=== PATIENT | male | born 1955 | race Caucasian/White ===

== ENCOUNTER → 2020-07-12 | Outpatient (CLI) | payer MEDICARE, OTHER | LOC: M.MRI 08:30 | PROVIDERS: ATTEND Orthopaedic Surgery | DX: S83.32XA Tear of articular cartilage of left knee, current, initial encounter (principal); M17.12 Unilateral primary osteoarthritis, left knee; M25.462 Effusion, left knee; X58.XXXA Exposure to other specified factors, initial encounter; Y92.89 Other specified places as the place of occurrence of the external cause; Y93.89 Activity, other specified; Y99.8 Other external cause status ==

== ENCOUNTER → 2020-07-26 | Outpatient (CLI) | payer MEDICARE, OTHER ==
[~2020-07-26] MED LIST: BROVANA15 MCG/2 M INH; KLONOPIN1 MG PO; LAMOTRIGINE250 MG PO; METFORMIN HCL500 M3 PO; MIRAPEX0.5 MG PO; NEURONTIN 300M300 M2 PO; PRAVACHOL40 MG PO; PROAIR HFA8.5 GM INH; SINGULAIR 10 MG10 MG PO; SYMBICORT160 MCG/4. INH; TRAMADOL 50 MG50 MG PO
[2020-07-26 10:33] LABS: ABSOLUTE EOSINOPHILS 0.4 thou/uL (0.0-0.7); ABSOLUTE MONOCYTES 0.8 thou/uL (0.0-1.2); ABSOLUTE NEUTROPHILS 3.7 thou/uL (1.6-8.1); BASOPHILS 0.5 %; EOSINOPHILS 4.5 %; HEMATOCRIT 38.1 % (42.0-52.0); HEMOGLOBIN 12.9 gm/dL (14.0-18.0); LYMPHOCYTES 37.9 %; MCH 29.4 pg (26.0-34.0); MCHC 33.7 g/dL (28.0-37.0); MCV 87.2 fL (80.0-100.0); MONOCYTES 9.7 %; MPV 7.2 fl. (7.2-11.1); NUCLEATED RBCS 0 /100WBC; PLATELET COUNT* 231 thou/uL (150-400); POLYS 47.4 %; RBC 4.37 mil/uL (4.50-6.00); RDW-CV 14.4 % (10.5-14.5); WBC 7.8 thou/uL (4.0-11.0)
[2020-07-26 10:37] LABS: URINE BILIRUBIN NEGATIVE (Negative); URINE BLOOD NEGATIVE (Negative); URINE CLARITY CLEAR; URINE COLOR YELLOW; URINE GLUCOSE-RANDOM NEGATIVE (Negative); URINE KETONES NEGATIVE (Negative); URINE LEUKOCYTES-REFLEX TRACE (Negative); URINE NITRITE-REFLEX NEGATIVE (Negative); URINE PROTEIN NEGATIVE (Negative); URINE UROBILINOGEN 0.2 E.U./dl (0.2-1.0)
[2020-07-26 10:43] LABS: INR 0.9; PROTIME 9.9 Seconds (9.20-11.50)
[2020-07-26 10:47] LABS: BACTERIA-REFLEX 1-9 Few /HPF (None Seen); CASTS None Seen /LPF (None Seen); MUCUS 0-3 Light strn/LPF (None Seen); SQUAMOUS 0-3 Few /LPF (0-3); URINE RBC 0-2 Rare /HPF (0-2); URINE WBC-REFLEX 0-5 Rare /HPF (0-5)
[2020-07-26 10:48] LABS: CRYSTALS None Seen /LPF (None Seen)
[2020-07-26 10:52] LABS: ALBUMIN 3.9 g/dL (3.4-5.0); CALCIUM 9.1 mg/dL (8.5-10.1); CREATININE 0.9 mg/dL (0.6-1.3); POTASSIUM 4.5 mmol/L (3.5-5.1); TOTAL BILIRUBIN 0.4 mg/dL (<0.1-1.0); TOTAL PROTEIN 7.2 g/dL (6.4-8.2)
--- NOTE | 2020-07-26 11:29 | EKG ---
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
== END ==
LOC: M.LAB 10:12
PROVIDERS: ATTEND Orthopaedic Surgery
DX: Z01.818 Encounter for other preprocedural examination (principal); Z96.652 Presence of left artificial knee joint

== ENCOUNTER 2020-08-02 06:32 | Inpatient (IN) | payer MEDICARE, OTHER ==
[~2020-08-02] VITALS: Ht 172.7 cm; Wt 81.6 kg
[2020-08-02 07:45] VITALS: BP 122/72
[2020-08-02 13:15] VITALS: BP 106/41
[2020-08-02 15:56] VITALS: BP 100/64
[2020-08-02 20:59] VITALS: BP 103/56
[2020-08-03] VITALS (7 sets, daily range): BP systolic 87–135; BP diastolic 52–67
[2020-08-03 04:07] LABS: HEMATOCRIT 30.4 % (42.0-52.0); HEMOGLOBIN 10.4 gm/dL (14.0-18.0)
[2020-08-04 07:53] LABS: HEMATOCRIT 28.8 % (42.0-52.0); MCH 30.4 pg (26.0-34.0); MCHC 34.6 g/dL (28.0-37.0); MCV 87.7 fL (80.0-100.0); MPV 7.9 fl. (7.2-11.1); RBC 3.28 mil/uL (4.50-6.00); RDW-CV 15.2 % (10.5-14.5); WBC 8.9 thou/uL (4.0-11.0)
[2020-08-04 08:32] VITALS: BP 96/50
[2020-08-04 08:52] LABS: BUN 15 mg/dL (7-18); CHLORIDE 103 mmol/L (98-107); CO2 31 mmol/L (21-32); GLUCOSE 125 mg/dL (70-99); POTASSIUM 4.4 mmol/L (3.5-5.1); SODIUM 137 mmol/L (136-145)
[2020-08-04 08:53] LABS: ALKALINE PHOSPHATASE 52 U/L (46-116); CALCIUM 7.9 mg/dL (8.5-10.1); MAGNESIUM 1.7 mg/dL (1.8-2.4); SGOT 19 U/L (15-37); SGPT 19 U/L (30-65); TOTAL BILIRUBIN 0.5 mg/dL (<0.1-1.0)
[2020-08-04 08:55] LABS: ALBUMIN 2.7 g/dL (3.4-5.0)
[2020-08-04 12:00] VITALS: BP 107/50
--- NOTE | 2020-08-04 14:39 | EKG ---
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1955 Requested By: Milton Martinez Order Number: [id number] Kam MD: Ruben Garcia Measurements Intervals [place] Rate: 150 P: SC: QRS: -48 QRSD: 108 T: 63 QT: 278 QTc: 440 Interpretive Statements Atrial flutter with a tachycardic ventricular response Left axis deviation Borderline low voltage, extremity leads Compared to ECG 07/26/2020 10:40:08 Left-axis deviation now present Sinus rhythm no longer present Electronically Signed On 08-04-2020 14:38:56 CDT by Ruben Garcia [email or web address] <ELECTRONICALLY SIGNED> By: Ruben Garcia MD, [facility] 08/04/20 1438 Ruben Garcia MD, FAC /EPI
--- NOTE | 2020-08-04 15:46 | 2DMMODE ---
[place] [address] 2 D/M-MODE ECHOCARDIOGRAM Name: JUDAH ARRIETA Room: [address] IN [facility]#: [id number] Admission: 08/02/20 Attend Phys: Milton Martinez Discharge: Date of : 55 Date of Service: 08/04/20 1546 Report #: [id number] THIS REPORT FOR: cc: Qasim Mobley Adam L.MD Holkins, John M. MD [facility] ~ APPROVED REPORT Study performed: 08/04/2020 14:19:53 EXAM: Comprehensive 2D, Doppler, and color-flow Echocardiogram Patient Location: In-Patient Room #: [facility] Status: routine BSA: 1.95 HR: 146 bpm BP: 107/50 mmHg Rhythm: Atrial Fibrillation Other Information Study Quality: Adequate Indications Atrial Fibrillation 2D Dimensions IVSd: 11.18 (7-11mm) LVOT Diam: 19.54 (18-24mm) LVDd: 44.72 mm PWd: 9.79 (7-11mm) Ascending Ao: 32.15 (22-36mm) LVDs: 30.38 (25-40mm) Aortic Root: 33.33 mm Volumes Left Atrial Volume (Systole) LA ESV Index: 13.50 mL/m2 Aortic Valve AoV Peak Price.: 1.49 m/s AO Peak Gr.: 8.89 mmHg LVOT Max P.59 mmHg AO Mean Gr.: 5.30 mmHg LVOT Mean P.71 mmHg LVOT Max V: 1.07 m/s AO V2 VTI: 20.81 cm LVOT Mean V: 0.96 m/s CINTIA (VTI): 2.40 cm2 LVOT V1 VTI: 16.68 [place] [address] 2 D/M-MODE ECHOCARDIOGRAM Name: JUDAH ARRIETA Room: [address] IN .R.#: [id number] Admission: 08/02/20 Attend Phys: Milton Martinez Discharge: Date of : 55 Date of Service: 08/04/20 1546 Report #: [id number] Pulmonary Valve PV Peak Price.: 1.11 m/s PV Peak Gr.: 4.95 mmHg Tricuspid Valve RAP Estimate: 5.00 mmHg TR Peak Gr.: 27.11 mmHg RVSP: 32.00 mmHg PA Pressure: 32.00 mmHg Left Ventricle The left ventricle is normal size. There is normal LV segmental wall motion. There is normal left ventricular wall thickness. Left ventricular systolic function is normal. The left ventricular ejection fraction is within the normal range. LVEF is 65-70%. This study is not technically sufficient to allow evaluation of the LV diastolic function due to atrial fibrillation. Right Ventricle The right ventricle is normal size. The right ventricular systolic function is normal. Atria The left atrium size is normal. The right atrium size is normal. Aortic Valve Mild aortic valve sclerosis. No aortic regurgitation is present. There is no aortic valvular stenosis. Mitral Valve The mitral valve is normal in structure. There is no mitral valve regurgitation noted. No evidence of mitral valve stenosis. Tricuspid Valve The tricuspid valve is normal in structure. Mild tricuspid regurgitation. Mild pulmonary hypertension. Pulmonic Valve The pulmonary valve is normal in structure. There is no pulmonic valvular regurgitation. Great Vessels The aortic root is normal in size. IVC is normal in size and collapses >50% with inspiration. Pericardium There is no pericard[place] [address] 2 D/M-MODE ECHOCARDIOGRAM Name: JUDAH ARRIETA Room: [address] IN .R.#: [id number] Admission: 08/02/20 Attend Phys: Milton Martinez Discharge: Date of : 55 Date of Service: 08/04/20 1546 Report #: [id number] <Conclusion> The left ventricle is normal size. There is normal left ventricular wall thickness. Left ventricular systolic function is normal. The left ventricular ejection fraction is within the normal range. LVEF is 65-70%. The right ventricle is normal size. The left atrium size is normal. Mild aortic valve sclerosis. No aortic regurgitation is present. There is no aortic valvular stenosis. The mitral valve is normal in structure. The tricuspid valve is normal in structure. Mild tricuspid regurgitation. Mild pulmonary hypertension. IVC is normal in size and collapses >50% with inspiration. There is no pericardial effusion. There is normal LV segmental wall motion. <ELECTRONICALLY SIGNED> By: Ruben Garcia MD, FACC 08/04/20 1546 1546 1546 Ruben Garcia MD, FACC /INF
[2020-08-04 16:11] VITALS: BP 82/52
--- NOTE | 2020-08-04 16:47 | EKG ---
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: CHELSEY : 1955 Requested By: Rufina Garza Order Number: [id number] Kam MD: Enrique Borges Measurements Intervals [place] Rate: 148 P: [place]: QRS: -63 QRSD: 117 T: -56 QT: 331 QTc: 520 Interpretive Statements Atrial flutter with 2:1 AV block Nonspecific IVCD with LAD Borderline low voltage, extremity leads Nonspecific T abnormalities, inferior leads Compared to ECG 08/04/2020 03:14:34 2:1 AV block now present Intraventricular conduction delay now present T-wave abnormality now present Left-axis deviation no longer present Electronically Signed On 08-04-2020 16:46:54 CDT by Enrique Borges [email or web address] <ELECTRONICALLY SIGNED> By: Enrique Borges MD, [facility] 08/04/20 1646 1127 1127 Enrique Borges MD, [facility] /EPI
[2020-08-05] VITALS (7 sets, daily range): BP systolic 90–148; BP diastolic 31–74
[2020-08-05 06:10] LABS: BE 2.4 mmol/L (-2 to +3); PCO2 38.3 mmHg (35.0-45.0); pH 7.456 (7.340-7.450)
[2020-08-05 06:16] LABS: PO2 59.9 mmHg (75.0-100.0)
[2020-08-05 09:20] LABS: CALCIUM 7.6 mg/dL (8.5-10.1); CREATININE 1.1 mg/dL (0.6-1.3); MAGNESIUM 2.1 mg/dL (1.8-2.4); POTASSIUM 5.1 mmol/L (3.5-5.1)
--- NOTE | 2020-08-05 09:34 | OP ---
[facility] [address] [place] [address] OPERATIVE REPORT Name: JUDAH ARRIETA Room: [facility]- ADM IN M.R.#: [id number] Admission: 08/02/20 Attend Phys: Jazmin Beard Discharge: Date of : 55 Report #: [id number] THIS REPORT FOR: cc: Qasim Mobley Adam L.MD Greiner, Robert F. II DO ~ DOC #: [id number] Romel Billingsley II, DO DATE OF SURGERY: 08/02/2020 PREOPERATIVE DIAGNOSIS: Left knee osteoarthritis. POSTOPERATIVE DIAGNOSIS: Left knee osteoarthritis. PROCEDURE: Left total knee arthroplasty. SURGEON: Romel Billingsley II, DO. AGED OR DISABLED CARE WORKER: None. ANESTHESIA: General endotracheal. ESTIMATED BLOOD LOSS: 50 mL. ANTIBIOTICS: Ancef preoperatively. DRAINS: Medium Hemovac. COMPLICATIONS: None. CONDITION: The patient stable to recovery room. IMPLANTS: Listed in operative record and progress note. BRIEF HISTORY: The patient was seen in the preoperative area. Preoperative H and P was performed. Site was marked, questions were answered. Risks and benefits were discussed with the patient in detail about the surgery. The patient wished to proceed, assuming all risks. DESCRIPTION OF PROCEDURE: The patient was taken to the operative suite, placed supine on the operating table and given appropriate anesthesia. A well-padded tourniquet was applied to the upper thigh, which was inflated to 300 mmHg after gravity exsanguination. The operative knee was sterilely prepped and draped. Surgery began by midline incision. This was carried down to subcutaneous tissues. A medial parapatellar arthrotomy was performed, carried down to bone. Patella was then everted and excess soft tissue [place] [address] OPERATIVE REPORT Name: JUDAH ARRIETA Room: [address] IN [place].#: [id number] Admission: 08/02/20 Attend Phys: Jazmin Beard Discharge: Date of : 55 Report #: [id number] cutting block was then applied and checked with drop rebeca rotational alignment, pinned in appropriate position and appropriate cuts were made. A 4-in-1 cutting block was then applied and checked for rotational alignment, pinned in appropriate position and appropriate cuts were made. The tibia was then exposed. Excess meniscus was removed. Retractors were placed on collateral ligaments. The tibial cutting block was applied, pinned in appropriate position, checked with a drop rebeca for rotational alignment and slope and appropriate cut was made. The tibial bone was removed. Tibial baseplate was then applied and checked for rotational alignment with a drop rebeca and pinned in appropriate position. The femur was then applied and box cut was reamed. This was then trialed with appropriate spacer, which showed excellent fit and fill and excellent stability of the knee through all range of motion. The patella was reamed in appropriate fashion, sized to appropriate size, 3 peg holes were drilled and it was then trialed and showed excellent flexion and extension, excellent tracking of the patella within the groove. These trials were then removed. The tibia was punched in appropriate fashion. Bone ends were cleansed with Pulsavac irrigation and cement was mixed and applied to final implants. These were then malleted into position and held the knee in extension and compressed to allow cement to cure. After cured, excess was removed using a Malin and osteotome. Wound was then copiously irrigated and the final spacer was then malleted in position. The tourniquet was deflated. Hemostasis was maintained with electrocautery. The pain cocktail was injected. Medium Hemovac drain was applied. Capsule was closed with 2 FiberWire and 1 Vicryl in [id number] fashion. Skin was closed with 2-0 Vicryl and 3-0 Monocryl. Dermabond and sterile dressing was applied. Jose wrap and PolarCare applied. The patient transported to recovery room in stable condition. Counts were correct throughout the procedure. DO CAT Toussaint II/THANH <ELECTRONICALLY SIGNED> By: Romel Billingsley II, DO 08/05/20 0934 0737 0818Romel Billingsley II, DO /nt
[2020-08-05 13:54] LABS: CHOLESTEROL 146 mg/dL (<200); HDL CHOLESTEROL 53 mg/dL (>40); LDL CHOLESTEROL 75 mg/dL (<100); TC:HDL 2.8 Ratio (Not establshd); TRIGLYCERIDE 92 mg/dL (<150); VLDL 18 mg/dL (<40)
[2020-08-05 13:55] LABS: SERUM ASSESSMENT Clear
[2020-08-06] VITALS: BP 109/49
[2020-08-06 04:18] VITALS: BP 110/64
[2020-08-06 06:20] LABS: HEMATOCRIT 24.6 % (42.0-52.0); HEMOGLOBIN 8.4 gm/dL (14.0-18.0); MCH 29.9 pg (26.0-34.0); MCHC 34.3 g/dL (28.0-37.0); MCV 87.2 fL (80.0-100.0); MPV 7.7 fl. (7.2-11.1); RBC 2.82 mil/uL (4.50-6.00); RDW-CV 14.5 % (10.5-14.5); WBC 5.3 thou/uL (4.0-11.0)
[2020-08-06 06:54] LABS: ALBUMIN 2.5 g/dL (3.4-5.0); CALCIUM 8.2 mg/dL (8.5-10.1); CREATININE 0.8 mg/dL (0.6-1.3); MAGNESIUM 2.4 mg/dL (1.8-2.4); POTASSIUM 4.3 mmol/L (3.5-5.1); TOTAL BILIRUBIN 0.5 mg/dL (<0.1-1.0); TOTAL PROTEIN 6.7 g/dL (6.4-8.2)
[2020-08-06 12:02] VITALS: BP 104/66
[2020-08-06 12:07] LABS: ABSOLUTE MONOCYTES 0.5 thou/uL (0.0-1.2); ABSOLUTE NEUTROPHILS 4.6 thou/uL (1.6-8.1); BASOPHILS 0.1 %; HEMATOCRIT 24.2 % (42.0-52.0); HEMOGLOBIN 8.4 gm/dL (14.0-18.0); LYMPHOCYTES 16.6 %; MCH 30.1 pg (26.0-34.0); MCHC 34.6 g/dL (28.0-37.0); MCV 87.1 fL (80.0-100.0); MONOCYTES 7.8 %; MPV 7.7 fl. (7.2-11.1); NUCLEATED RBCS 0 /100WBC; PLATELET COUNT* 171 thou/uL (150-400); POLYS 75.5 %; RBC 2.78 mil/uL (4.50-6.00); RDW-CV 14.2 % (10.5-14.5); WBC 6.1 thou/uL (4.0-11.0)
[2020-08-06 16:48] VITALS: BP 139/80
[2020-08-06 20:00] VITALS: BP 104/64
[2020-08-07 00:50] VITALS: BP 115/56
[2020-08-07 02:09] LABS: T7 2.1 (1.2-4.9)
[2020-08-07 04:12] VITALS: BP 123/69
[2020-08-07 06:37] LABS: HEMATOCRIT 26.4 % (42.0-52.0); HEMOGLOBIN 8.9 gm/dL (14.0-18.0); MCH 29.5 pg (26.0-34.0); MCHC 33.8 g/dL (28.0-37.0); MCV 87.3 fL (80.0-100.0); MPV 7.8 fl. (7.2-11.1); RBC 3.03 mil/uL (4.50-6.00); RDW-CV 14.7 % (10.5-14.5); WBC 6.9 thou/uL (4.0-11.0)
[2020-08-07 06:55] LABS: CALCIUM 8.5 mg/dL (8.5-10.1); CREATININE 0.8 mg/dL (0.6-1.3); POTASSIUM 4.3 mmol/L (3.5-5.1)
[2020-08-07 08:00] VITALS: BP 108/62
[2020-08-07 13:08] VITALS: BP 104/67
[2020-08-07 15:40] VITALS: BP 112/75
[2020-08-07 20:00] VITALS: BP 129/70
[2020-08-08] VITALS (7 sets, daily range): BP systolic 96–141; BP diastolic 57–73
[2020-08-08 04:22] LABS: ABSOLUTE LYMPHOCYTES 1.9 thou/uL (0.8-5.3); ABSOLUTE MONOCYTES 1.2 thou/uL (0.0-1.2); ABSOLUTE NEUTROPHILS 3.7 thou/uL (1.6-8.1); BASOPHILS 0.1 %; EOSINOPHILS 0.1 %; HEMATOCRIT 25.8 % (42.0-52.0); HEMOGLOBIN 8.9 gm/dL (14.0-18.0); LYMPHOCYTES 27.9 %; MCH 30.1 pg (26.0-34.0); MCHC 34.6 g/dL (28.0-37.0); MCV 86.8 fL (80.0-100.0); MONOCYTES 17.3 %; MPV 7.5 fl. (7.2-11.1); NUCLEATED RBCS 0 /100WBC; PLATELET COUNT* 266 thou/uL (150-400); POLYS 54.6 %; RBC 2.97 mil/uL (4.50-6.00); RDW-CV 14.3 % (10.5-14.5); WBC 6.8 thou/uL (4.0-11.0)
[2020-08-08 04:42] LABS: ALBUMIN 2.5 g/dL (3.4-5.0); CALCIUM 8.6 mg/dL (8.5-10.1); CREATININE 0.9 mg/dL (0.6-1.3); MAGNESIUM 2.2 mg/dL (1.8-2.4); POTASSIUM 4.8 mmol/L (3.5-5.1); TOTAL BILIRUBIN 0.5 mg/dL (<0.1-1.0); TOTAL PROTEIN 6.3 g/dL (6.4-8.2)
--- NOTE | 2020-08-08 10:18 | EKG ---
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 : 1955 Requested By: Rufina Garza Order Number: [id number] Kam MD: James Amor Measurements Intervals [place] Rate: 86 P: 78 SD: 148 QRS: 48 QRSD: 108 T: 54 QT: 368 QTc: 440 Interpretive Statements Sinus rhythm Nonspecific T abnormalities, anterior leads Baseline wander in lead(s) V2,V4,V6 Compared to ECG 08/04/2020 11:27:52 Atrial flutter no longer present T-wave abnormality still present Electronically Signed On 08-08-2020 10:18:28 CDT by James Amor [email or web address] <ELECTRONICALLY SIGNED> By: James Amor MD, FAC 08/08/20 1018 9 9 James Amor MD, [facility] /EPI
--- NOTE | 2020-08-08 10:26 | EKG ---
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 : 1955 Requested By: Rufina Garza Order Number: [id number] Reading MD: James Amor Measurements Intervals [place] Rate: 74 P: 78 NV: 135 QRS: 31 QRSD: 102 T: 39 QT: 389 QTc: 432 Interpretive Statements Sinus rhythm Borderline repolarization abnormality Baseline wander in lead(s) III,aVF Compared to ECG 08/04/2020 11:27:52 no change Electronically Signed On 08-08-2020 10:26:21 CDT by James Amor [email or web address] <ELECTRONICALLY SIGNED> By: James Amor MD, [facility] 08/08/20 1026 1155 1155 James Amor MD, [facility] /EPI
--- NOTE | 2020-08-08 10:32 | EKG ---
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
--- NOTE | 2020-08-08 20:33 | CON ---
[address] [address] CONSULTATION Name: JUDAH ARRIETA Room: [address] IN M.R.#: [id number] Admission: 08/02/20 Attend Phys: Jazmin Beard Discharge: Date of : 55 Report #: [id number] THIS REPORT FOR: cc: Qasim Mobley Adam L.MD Pervez, Adeel MD ~ DOC #: [id number] Joo Kellogg MD DATE OF CONSULTATION: 08/05/2020 REQUESTING PHYSICIAN: Milton Talbert MD INDICATION FOR CONSULTATION: Increasing hypoxia. HISTORY OF PRESENT ILLNESS: This is a 65-year-old gentleman with past medical history of COPD. The patient does not state that he is on oxygen or CPAP at home. At this time, the patient was admitted initially on 08/02/2020. Presentation was for elective left knee replacement. Despite the fact that the patient did not tell me that he uses oxygen at home, he in fact is noted to be on 4 liters of oxygen upon his first pulse ox available on 08/02. He did undergo knee replacement. Subsequent to the procedure, h has had increasing shortness of breath. He has also had a cough with small amounts of white and yellow sputum production. Also, he has had atrial flutter. He had a CTA chest performed yesterday which does show atypical infiltrates. He has had venous Dopplers, which were negative. The patient's blood pressure has been labile, earlier was high and low. The patient in fact received a fluid bolus this morning. He is now on anticoagulation and sotalol per the Cardiology service. Currently, he is on 6 liters oxygen. He is maintaining O2 saturation in the low 90s. He has been on BiPAP at night with a BiPAP of 14/6. Tidal volume is recorded up to 800 mL. He has had some pain at the site of surgery which is under control at this time. REVIEW OF SYSTEMS: His review of systems for 12 points is negative except as mentioned above. He has not had fever or chills. He does not have upper respiratory complaints. He is not complaining of chest pain at this time. PAST MEDICAL HISTORY: 1. COPD. With discussion regarding oxygen at home as above, I will need to clarify this. 2. He has had an episode of atrial fibrillation in the past as well. PAST SURGICAL HISTORY: 1. Five back surgeries. 2. Two neck surgeries. 3. [place] [address] CONSULTATION Name: JUDAH ARRIETA Room: [address] IN [facility]#: [id number] Admission: 08/02/20 Attend Phys: Jazmin Beard Discharge: Date of : 55 Report #: [id number] 4. Knee surgery in the left knee. He has had a recent echo which shows a left ventricular ejection fraction of 65-70% with pulmonary artery systolic pressure of 32. SOCIAL HISTORY: Extensive history of smoking in the past, discontinued. No known history of heavy alcohol use or illegal drug use. CURRENT MEDICATIONS: Current medication list in [facility], reviewed. HOME MEDICATIONS: Home medication list also in [facility], reviewed. ALLERGIES: CODEINE and TRAZODONE. IMMUNIZATION HISTORY: He says he received 2 doses of Pfizer COVID-19 vaccine. PHYSICAL EXAMINATION: GENERAL: He is alert, awake and oriented. VITAL SIGNS: He has a pulse of 103 and a blood pressure of 122/56. He is on 6 liters nasal cannula. He is saturating in the low 90s. His respiratory rate is mildly elevated to 20. He is afebrile with a temperature of 35.9. Body mass index 27. HEENT: Head is normocephalic, atraumatic. Pupils equal and reactive. There is no throat erythema. NECK: Does not show raised JVP, asymmetry, mass or lymph nodes. CHEST: Symmetrical expansion on inspection and palpation. On auscultation, breath sounds are bilaterally equal, but decreased. I do not hear any added sounds. Expirations are prolonged. HEART: Regular. There is no murmur. ABDOMEN: Soft and nontender. EXTREMITIES: Lower extremities show trace edema on the right side and 2+ edema on the left side. There is no calf tenderness. SKIN: Dry and intact. NEUROLOGICAL: Moves all extremities bilaterally equally and spontaneously with no focal deficits identified. IMAGING: He has had 2 chest x-rays, CTA chest and venous Dopplers. These are as discussed below. I do not have an older comparison available. LABORATORY DATA: Lab work is in [facility] and this is reviewed. ASSESSMENT AND PLAN: 1. Acute hypoxemic respiratory failure. Continue BiPAP while asleep and p.r.n. His tidal volumes were high at 800 with current [facility] settings[place] [address] CONSULTATION Name: JUDAH ARRIETA Room: [address] ADM IN M.R.#: [id number] Admission: 08/02/20 Attend Phys: Jazmin Beard Discharge: Date of : 55 Report #: [id number] switch BiPAP over to AVAPS mode and titrate oxygen as tolerated. 2. Chronic obstructive pulmonary disease exacerbation. He appears to be bronchospastic on my exam. Because he has had recent surgery, I will try to keep steroid dose on the lower side. He is on prednisone. I agree with prednisone. We will continue the same. I will go ahead and give him one dose of Solu-Medrol today and then reassess. He is on Xopenex as well as budesonide and Brovana. I continued the same. 3. Atypical pulmonary infiltrates. There are bilateral pulmonary infiltrates noted on the CT chest. Therefore, I recommend starting broad spectrum antibiotics. Considering the fact that he is on sotalol, I am not giving him Levaquin or Zithromax, and would instead give him doxycycline. We will also give him ceftriaxone. This is likely a bacterial or atypical infection. My suspicion of COVID is low. He has already been vaccinated with 2 doses of Synovex COVID-19 vaccine. For the sake of completion, I will go ahead and obtain a rapid COVID-19 antigen; however, I have not ordered isolation pending results. Results should be available shortly. Other cultures and serologies are ordered. 4. Fluid overload. Overall, he appears to be total body fluid overloaded. His blood pressure has been labile. In fact, he recently got a fluid bolus, so I did not give him Lasix now. If his blood pressure remains stable, then I recommend giving him Lasix. 5. Atrial flutter. Note that he is now on anticoagulation. He also is on sotalol. 6. Status post knee surgery. 7. C. difficile prophylaxis. We will give him Lactinex. Thanks for this consultation. MD DALIA Adkins/MALLORY <ELECTRONICALLY SIGNED> By: Joo Kellogg MD 08/08/202032 1505 0135Astew Kellogg MD /nt
[2020-08-09] VITALS: BP 116/70
[2020-08-09 04:33] VITALS: BP 120/75
[2020-08-09 05:03] LABS: CALCIUM 8.4 mg/dL (8.5-10.1); CREATININE 0.8 mg/dL (0.6-1.3); POTASSIUM 4.7 mmol/L (3.5-5.1)
[2020-08-09 05:39] LABS: HEMATOCRIT 28.3 % (42.0-52.0); HEMOGLOBIN 9.5 gm/dL (14.0-18.0); MCH 29.4 pg (26.0-34.0); MCHC 33.6 g/dL (28.0-37.0); MCV 87.6 fL (80.0-100.0); MPV 7.4 fl. (7.2-11.1); NUCLEATED RBCS 0 /100WBC; PLATELET COUNT* 336 thou/uL (150-400); RBC 3.23 mil/uL (4.50-6.00); RDW-CV 14.7 % (10.5-14.5)
[2020-08-09 06:19] LABS: ABSOLUTE LYMPHOCYTES 1.8 thou/uL (0.8-5.3); ABSOLUTE MONOCYTES 0.1 thou/uL (0.0-1.2); ABSOLUTE NEUTROPHILS 5.2 thou/uL (1.6-8.1)
[2020-08-09 06:20] LABS: PLATELET ESTIMATE ADEQUATE
[2020-08-09 08:00] VITALS: BP 123/68
[2020-08-09 12:00] VITALS: BP 132/82
[2020-08-09 16:00] VITALS: BP 136/76
[2020-08-09 20:19] VITALS: BP 134/65
[2020-08-10 02:27] VITALS: BP 121/67
[2020-08-10 04:20] VITALS: BP 119/70
[2020-08-10 05:21] VITALS: BP 128/72
[2020-08-10 08:00] VITALS: BP 137/49
--- NOTE | 2020-08-10 09:36 | EKG ---
[place] [address] ELECTROCARDIOGRAM REPORT Name: JUDAH ARRIETA Room: [address] ADM IN .R.#: [id number] Admission: 08/02/20 Attend Phys: Milton Martinez Discharge: Date of : 55 Date of Service: 08/10/20812 Report #: [id number] THIS REPORT FOR: //name// [facility] Test Date: 2020-08-10 Test Time: 08:13:29 Pat Name: JUDAH ARRIETA Department: Room: [address] Gender: M Decontaminator: : 1955 Requested By: Rufina Garza Order Number: [id number] Kam MD: James Amor Measurements Intervals [place] Rate: 68 P: 76 NM: 146 QRS: 23 QRSD: 102 T: 42 QT: 394 QTc: 420 Interpretive Statements Sinus rhythm Borderline T wave abnormalities Compared to ECG 08/08/2020 08:51:57 no change Electronically Signed On 08-10-2020 9:36:31 CDT by James Amor [email or web address] <ELECTRONICALLY SIGNED> By: James Amor MD, [facility] 08/10/20 0936 2 2 James Amor MD, [facility] /EPI
[2020-08-10 13:18] VITALS: BP 143/67
[2020-08-10] MEDS ORDERED: DOXYCYCLINE 10100 MG PO (13:58)
[2020-08-10] MEDS ORDERED: XARELTO20 MG PO (14:03)
[2020-08-10] MEDS ORDERED: LIPITOR10 MG PO (14:04)
[2020-08-10] MEDS ORDERED: FLECAINIDE ACET50 M1 PO (14:04)
[2020-08-10] MEDS ORDERED: CARDIZEM CD120 MG PO (14:05)
[2020-08-10] MEDS ORDERED: LASIX 20 MG TAB20 MG PO (14:06)
[2020-08-10] MEDS ORDERED: PREDNISONE 20 M20 MG PO (14:07)
[2020-08-10 15:45] VITALS: BP 136/69
== END 2020-08-10 17:10 | disposition home health service (06) | DRG 469 ==
LOC: M.ORTHSURG → M.TBA 07:11 → M.ORTHSURG 07:11 → M.2W 08-04 08:27
PROVIDERS: Internal Medicine; Internal Medicine Critical Care Medicine; Orthopaedic Surgery; Registered Nurse; ADMIT Internal Medicine; ATTEND Internal Medicine
DX: M17.12 Unilateral primary osteoarthritis, left knee (principal); J96.01 Acute respiratory failure with hypoxia; I50.33 Acute on chronic diastolic (congestive) heart failure; J18.9 Pneumonia, unspecified organism; J44.1 Chronic obstructive pulmonary disease with (acute) exacerbation; I48.92 Unspecified atrial flutter; I95.9 Hypotension, unspecified; G89.29 Other chronic pain; M54.9 Dorsalgia, unspecified; E78.5 Hyperlipidemia, unspecified; E11.9 Type 2 diabetes mellitus without complications; I25.10 Atherosclerotic heart disease of native coronary artery without angina pectoris; I48.91 Unspecified atrial fibrillation; Z20.822 Contact with and (suspected) exposure to COVID-19; Z87.891 Personal history of nicotine dependence; Z88.5 Allergy status to narcotic agent; Z88.8 Allergy status to other drugs, medicaments and biological substances; Z79.899 Other long term (current) drug therapy